=== PATIENT | female | born 1945 | race Caucasian/White ===

== ENCOUNTER 2017-04-28 07:08 | Outpatient (CLI) | payer MEDICARE, OTHER ==
[2017-04-28 08:31] LABS: eGFR (African) > 60; eGFR (Non-African) > 60
[2017-04-28 22:51] LABS: VITAMIN D, 25-HYDROXY 47 ng/mL (30-100)
== END 2017-04-28 07:10 ==
LOC: LAB 07:08
PROVIDERS: ATTEND Family Medicine
DX: E03.9 Hypothyroidism, unspecified (principal); M32.9 Systemic lupus erythematosus, unspecified; E55.9 Vitamin D deficiency, unspecified; E53.8 Deficiency of other specified B group vitamins; Z13.6 Encounter for screening for cardiovascular disorders
CPT/HCPCS: 36415; 80053; 80061; 82306; 82607; 84443; 85651

== ENCOUNTER 2017-06-17 13:19 | Outpatient (CLI) | payer MEDICARE, OTHER | END 2017-06-17 13:20 | LOC: LAB 13:19 | PROVIDERS: ATTEND Family Medicine | DX: E03.9 Hypothyroidism, unspecified (principal) | CPT/HCPCS: 36415; 84443 ==